=== PATIENT | male | born 1940 | race Caucasian/White ===

== ENCOUNTER 2017-01-15 08:46 | Day surgery (SDC) | payer BC ==
[~2017-01-15 08:46] MED LIST: BRIMONIDINE 0.2% OPHTH DROPS 5 ML ONE; CYCLOPENTOLATE 1% OPHTH DROPS 2 ML ONE; KETOROLAC 0.45% OPHTH DROPS ONE; PHENYLEPHRINE 2.5% OPHTH 2 ML DROPS ONE; PROPARACAINE 0.5% OPHTH DROPS 15 ML ONE; TIMOLOL 0.5% OPHTH DROPS ONE
[2017-01-15] MEDS ORDERED: LACTATED RINGERS 1,000 ML IV ONE (09:06)
[2017-01-15] MEDS ORDERED: TIMOLOL 0.5% OPHTH DROPS OPTH ONE (09:57)
[2017-01-15] MEDS ORDERED: EPINEPHrine 1 MG/ML AMP IVP ONE (09:57)
[2017-01-15] MEDS ORDERED: BRIMONIDINE 0.2% OPHTH DROPS 5 ML OPTH ONE (09:57)
[2017-01-15] MEDS ORDERED: TRIAMCIN/MOXIFLOX/VANCO 1 ML VIAL IO ONE ×2 (09:57)
[2017-01-15] MEDS ORDERED: BSS/LIDOCAINE/EPINEPHRINE 1 ML SYRINGE IO ONE ×2 (09:57)
[2017-01-15] MEDS ORDERED: PROPARACAINE 0.5% OPHTH DROPS 15 ML OPTH ONE (09:57)
[2017-01-15] MEDS ORDERED: CHONDR SULF/HYALURONATE SYRINGE IO ONE (09:57)
[2017-01-15] MEDS ORDERED: MIDAZOLAM 2 MG/2 ML VIAL IVP ONE (10:03)
[2017-01-15 10:46] VITALS: BP 111/57
--- NOTE | 2017-01-15 11:17 | OPERATIVE REPORT ---
DATE OF SURGERY: 01/15/2017 00:00:00 PREOPERATIVE DIAGNOSIS: Visually significant cataract, left eye. This is his first cataract surgery. POSTOPERATIVE DIAGNOSIS: Visually significant cataract, left eye. This is his first cataract surgery. NAME OF PROCEDURE: Phacoemulsification with posterior chamber intraocular lens implant, left eye. SURGEON: Yimi Sarmiento MD ANESTHESIA: Monitored anesthesia care. COMPLICATIONS: None. OPERATIVE INDICATIONS: This is a 76-year-old man with progressive vision loss in the left eye due to 2+ nuclear sclerotic and 1+ posterior subcapsular cataract. Best corrected visual acuity was 20/200 with glare to hand motion in the left eye. Indications for surgery were an overall decrease in vision, difficulty seeing words on a computer screen, difficulty reading, and difficulty seeing street signs. He was consented at length concerning the risks and benefits of cataract surgery after which he expressed a desire to proceed with surgery. OPERATIVE PROCEDURE: The patient was taken into OR #2 and placed under monitored anesthesia care. A surgical time-out was conducted confirming correct patient, correct procedure and correct surgical site. He was given topical anesthesia and then prepped and draped in the usual sterile fashion. The eye was entered at the 6- and 3 o'clock positions. Intracameral Shugarcaine was injected into the anterior chamber followed by Viscoat. A continuous tear curvilinear capsulorrhexis was performed. The nucleus was hydrodissected and phacoemulsified. The cortex was evacuated using automated infusion aspiration. Provisc was injected into the capsular bag, and a 22.0-diopter intraocular lens was inserted into the bag. Approximately 0.7 mL of a mixture of triamcinolone, moxifloxacin, and vancomycin was injected subconjunctivally in the superior quadrant for infection and inflammation prophylaxis. I/A was used to evacuate the viscoelastic materials. The eye was inflated to physiologic pressure using balanced salt solution and found to be watertight. The patient was taken from the operating room in good condition and given postoperative instructions. JOB #: [id number] EXT JOB #:[id number] MTDD
== END 2017-01-15 08:47 | disposition home or self-care (01) ==
LOC: SDS 08:46
PROVIDERS: ATTEND Ophthalmology
PROC: 08RK3JZ Replacement of Left Lens with Synthetic Substitute, Percutaneous Approach (ICD-10-PCS; principal; 2017-01-15 10:00)
DX: H25.812 Combined forms of age-related cataract, left eye (principal); Z96.651 Presence of right artificial knee joint
CPT/HCPCS: 66984; A9270; J3490; J7120; V2632